=== PATIENT | male | born 1985 | race Hispanic/Latino ===

== ENCOUNTER 2018-08-22 08:22 | Emergency (ER) | payer MEDICAID | END 2018-08-22 09:26 | disposition home or self-care (01) | LOC: EDH 08:22 | DX: M12.842 Other specific arthropathies, not elsewhere classified, left hand (principal); L40.9 Psoriasis, unspecified; F41.9 Anxiety disorder, unspecified; Z87.891 Personal history of nicotine dependence | CPT/HCPCS: 99281 ==

== ENCOUNTER 2019-08-06 20:07 | Emergency (ER) | payer MEDICAID ==
[2019-08-06] MEDS ORDERED: CLINDAMYCIN HCL 150 MG CAP ONE (20:51)
== END 2019-08-06 21:01 | disposition home or self-care (01) ==
LOC: EDH 20:07
DX: L02.413 Cutaneous abscess of right upper limb (principal); F41.9 Anxiety disorder, unspecified; L40.9 Psoriasis, unspecified; Z87.891 Personal history of nicotine dependence; Z90.49 Acquired absence of other specified parts of digestive tract
CPT/HCPCS: 10060